=== PATIENT | female | born 1945 | race Two or more races ===

== ENCOUNTER 2024-12-13 06:05 | Inpatient (IN) | payer OTHER ==
[~2024-12-13] VITALS: Ht 162.6 cm; Wt 72.6 kg
[2024-12-13] MEDS ORDERED: ELIQUIS5 MG PO (06:24)
[2024-12-13] MEDS ORDERED: COZAAR50 MG PO (06:26)
[2024-12-13] MEDS ORDERED: LIPITOR20 MG PO (06:27)
[2024-12-13] MEDS ORDERED: TENORMIN25 MG PO (06:27)
[2024-12-13] MEDS ORDERED: MILLIPRED5 MG PO (06:27)
--- NOTE | 2024-12-13 06:32 | NUR ---
SE RECIBE FEMINA ALERTA Y ORIENTADA X3 QUIEN VERBALIZA ES REFERIDA POR DR SHARRI GUEVARA POR RESULTADOS DE LABORATORIO ALTERADOS. SE MIDEN S/V Y SE UBICA.
[2024-12-13] MEDS ORDERED: 0.9 % SODIUM CHLORIDE 500 ML IV ONE (08:15)
--- NOTE | 2024-12-13 09:11 | NUR ---
SE EDUCA A PACIENTE SOBRE TRATAMIENTO MEDICO EL CUAL REFIERE ENTENDER SE REALIZA ETHAN DE MUESTRAS JUSTEN ORDEN MEDICA Y SE ADMINISTRA MEDICAMENTOS JUSTEN ORDEN MEDICA.
[2024-12-13 09:21] LABS: BASO % 0.3 % (0.1-1.2); EOS # 0.02 (0.04-0.54); EOS % 0.6 % (0.7-7.0); LYMPH # 0.69 (1.18-3.74); LYMPH % 20.1 % (19.3-53.1); MEAN PLATELET VOLUME 10.00 fl (9.4-12.4); MONO # 0.46 (0.24-0.82); MONO % 13.4 % (4.7-12.5); NEUT # 2.23 (1.56-6.13); NEUT % 65.0 % (34.0-71.1); RED CELL DISTRIBUTION WIDTH 18.1 % (11.6-14.4)
[2024-12-13 09:42] LABS: INR 1.03
[2024-12-13 09:49] LABS: ALT/SGPT 28.0 U/L (12-78); AST/SGOT 25.0 U/L (15-37); BILIRUBIN TOTAL 0.8 mg/dL (0.3-1.2); BUN CREA RATIO 24.0 (7.0-25.0); CREATININE SERUM 0.88 mg/dL (0.55-1.02); GFR 61.98; GLOBULINA 4.4 G/DL (2.4-3.5); GLUCOSE FASTING 118.0 mg/dL (65-100); OSMOLALITY SERUM 285.0 MOSM/KG (275-295)
[2024-12-13 12:05] LABS: URINE APPEARANCE Clear; URINE BILIRRUBIN Negative (NEGATIVE); URINE BLOOD Negative; URINE COLOR Yellow; URINE GLUCOSE Negative (NEGATIVE); URINE KETONE Negative (NEGATIVE); URINE LEUKOCYTE Small; URINE NITRATE Negative; URINE PROTEIN Negative (NEGATIVE); URINE UROBILINOGEN 0.2 E.U./dl
[2024-12-13 12:09] LABS: URINE BACTERIA 682.6 uL (0.0-1933); URINE EPITHELIAL CELLS 12.9 uL (0.0-38.8); URINE RBC 3.3 uL (0.0-20.8); URINE WBC 33.6 uL (0.0-23.2)
[2024-12-13 12:23] LABS: URINE CAST 0.14 uL (0.0-1.40)
[2024-12-13] MEDS ORDERED: SODIUM CHLORIDE 0.45 % 1,000 ML IV SCH (13:30)
[2024-12-13] MEDS ORDERED: PANTOPRAZOLE SODIUM 40 MG/VIAL VIAL IV PUSH SCH (13:30)
[2024-12-13] MEDS ORDERED: LOSARTAN POTASSIUM 50 MG TABLET PO SCH (13:31)
[2024-12-13] MEDS ORDERED: ATENOLOL 50 MG TABLET PO SCH (13:31)
[2024-12-13] MEDS ORDERED: PREDNISONE 5 MG TABLET PO SCH (13:31)
[2024-12-13] MEDS ORDERED: ATENOLOL 25 MG TABLET PO NR (14:15)
[2024-12-13 14:36] VITALS: BP 154/79
[2024-12-13 18:04] LABS: COVID-19 AG NEGATIVE (NEGATIVE)
[2024-12-13 19:06] LABS: FE 50.0 ug/dl (50-170); LDH 186.0 U/L (84-246)
[2024-12-13 19:07] LABS: PHOSPHOKINASE CREATININE 40.0 U/L (26-192)
[2024-12-13 21:19] VITALS: BP 157/79; O2SAT 96
[2024-12-14] VITALS: BP 147/75; O2SAT 95
[2024-12-14 05:35] LABS: BASO % 0.0 % (0.1-1.2); EOS # 0.01 (0.04-0.54); EOS % 0.3 % (0.7-7.0); LYMPH # 0.58 (1.18-3.74); LYMPH % 16.8 % (19.3-53.1); MEAN PLATELET VOLUME 10.40 fl (9.4-12.4); MONO # 0.40 (0.24-0.82); MONO % 11.6 % (4.7-12.5); NEUT # 2.46 (1.56-6.13); NEUT % 71.0 % (34.0-71.1); RED CELL DISTRIBUTION WIDTH 17.8 % (11.6-14.4)
[2024-12-14 06:09] LABS: ERYTHROCYTE SEDIMENTATION RATE 61 mm/hr (0-30)
[2024-12-14 07:03] LABS: ALT/SGPT 24 U/L (12-78); AST/SGOT 20 U/L (15-37); BILIRUBIN TOTAL 0.84 mg/dL (0.3-1.2); BILIRUBIN,CONJUGATED 0.25 mg/dL (0.0-0.2); BUN CREA RATIO 21 (7.0-25.0); CHOL HDL RATIO 1.6 (0-5.0); CREATININE SERUM 0.72 mg/dL (0.55-1.02); FE 42.0 ug/dl (50-170); GFR 78.14; GLOBULINA 3.4 G/DL (2.4-3.5); GLUCOSE FASTING 101 mg/dL (65-100); HCG QUANTITATIVE 2 mUI/mL (1-3); HDL 111 mg/dl (40-60); LDL 52 mg/dl (0-130); OSMOLALITY SERUM 284 MOSM/KG (275-295); T4 FREE 0.97 NG/ML (0.76-1.46); TSH 0.737 uIU/mL (0.358-3.74); VLDL 12 (0-39)
[2024-12-14 07:16] LABS: COL ADP 251 SECONDS (56-102); COL EPI >265 SECONDS (82-175)
[2024-12-14] MEDS ORDERED: ATENOLOL 25 MG TABLET PO SCH (09:00)
[2024-12-14] MEDS ORDERED: ATORVASTATIN CALCIUM 20 MG TABLET PO SCH (09:00)
[2024-12-14 09:26] VITALS: BP 140/60; O2SAT 96
[2024-12-14] MEDS ORDERED: CYANOCOBALAMIN (VITAMIN B-12) 1,000 MCG/ML VIAL SUBCUTANEO NR (10:00)
[2024-12-14] MEDS ORDERED: BISACODYL 10 MG/SUPP.RECT SUPP.RECT RECTAL NR (10:00)
[2024-12-14] MEDS ORDERED: FOLIC ACID 1 MG TABLET PO NR (10:00)
[2024-12-14 11:17] LABS: CORTISOL 4.64 ug/dl; FOLIC ACID 11.73 ng/ml (4.78-20)
[2024-12-14 17:15] VITALS: BP 153/73; O2SAT 97
[2024-12-15 02:21] VITALS: BP 127/86; O2SAT 91
[2024-12-15] MEDS ORDERED: FOLIC ACID 1 MG TABLET PO SCH (09:00)
[2024-12-15] MEDS ORDERED: CYANOCOBALAMIN (VITAMIN B-12) 1,000 MCG/ML VIAL SUBCUTANEO SCH (09:00)
[2024-12-15 09:11] LABS: ACTH 6.4 pg/mL (7.2-63.3); DHEA-SULFATE 11.2 ug/dL (13.9-142.8)
[2024-12-15 09:18] VITALS: BP 140/53; O2SAT 96
[2024-12-15 11:04] LABS: ob POSITIVE (NEGATIVE)
[2024-12-15 17:32] VITALS: BP 131/74; O2SAT 97
[2024-12-16 02:34] VITALS: BP 157/76; O2SAT 95
[2024-12-16 07:00] VITALS: BP 145/77; O2SAT 94
[2024-12-16] MEDS ORDERED: ATENOLOL25 MG PO (09:54)
[2024-12-16] MEDS ORDERED: LIPITOR20 MG PO (09:54)
[2024-12-16] MEDS ORDERED: COZAAR50 MG PO (09:54)
[2024-12-16] MEDS ORDERED: FOLIC ACID1 MG PO (09:55)
[2024-12-17 15:08] LABS: TISSUE TRANSGLUTAMINASE IGA < 2 U/mL (0-3)
== END 2024-12-16 10:12 | disposition home or self-care (01) | DRG 810 ==
LOC: ER 06:05 → MEDI 13:48 → SEC-K 13:48 → MEDI 17:52
PROVIDERS: General Practice; ADMIT Internal Medicine; ATTEND Internal Medicine
PROC: BW21ZZZ Computerized Tomography (CT Scan) of Abdomen and Pelvis (ICD-10-PCS; principal; 2024-12-13)
DX: D61.818 Other pancytopenia (principal); D51.8 Other vitamin B12 deficiency anemias; D72.819 Decreased white blood cell count, unspecified; D69.6 Thrombocytopenia, unspecified; I10 Essential (primary) hypertension

== ENCOUNTER 2025-02-25 11:20 | Emergency (ER) | payer OTHER ==
[~2025-02-25] VITALS: Ht 170.2 cm; Wt 63.5 kg
[~2025-02-25 11:20] MED LIST: ALPRAZOLAM0.5 MG PO; ATENOLOL25 MG PO; BUDESONIDE0.5 MG/2 M IH; BUMETANIDE1 MG PO; COZAAR50 MG PO; ELIQUIS5 MG PO; FOLIC ACID1 MG PO; GERI-TUSSI100 MG/5 M PO; HUMULIN 70100 UNIT/2 SUBCUTANEO; INSULIN LI100 UNIT/1 SUBCUTANEO; IPRATROPIU0.2 MG/1 M IH; LIPITOR20 MG PO; MILLIPRED5 MG PO; NORVASC5 MG; Neurin-Sl Tablet Sl SL; POLY119PG PO; PREDNISONE20 MG PO; PROTEINEX-18 LI30 ML PO; RESTORIL15 MG PO; TENORMIN25 MG PO; TOPROL XL50 M1 PO
[2025-02-25] MEDS ORDERED: 0.9 % SODIUM CHLORIDE 1,000 ML IV SCH (14:15)
[2025-02-25] MEDS ORDERED: GUAIFEN/DEXTROMETHORPHAN/PE 10 ML BLIST.PACK PO ONE ×2 (14:15→14:21)
[2025-02-25 15:00] LABS: BASO % 0.1 % (0.1-1.2); EOS # 0.00 (0.04-0.54); EOS % 0.0 % (0.7-7.0); LYMPH # 0.32 (1.18-3.74); LYMPH % 3.6 % (19.3-53.1); MEAN PLATELET VOLUME 9.40 fl (9.4-12.4); MONO # 0.18 (0.24-0.82); MONO % 2.1 % (4.7-12.5); NEUT # 8.19 (1.56-6.13); NEUT % 93.3 % (34.0-71.1); RED CELL DISTRIBUTION WIDTH 18.3 % (11.6-14.4)
[2025-02-25 15:19] LABS: ALT/SGPT 16.0 U/L (12-78); AST/SGOT 27.0 U/L (15-37); BILIRUBIN TOTAL 0.5 mg/dL (0.3-1.2); BUN CREA RATIO 17.0 (7.0-25.0); CREATININE SERUM 0.9 mg/dL (0.55-1.02); GFR 60.4; GLOBULINA 4.6 G/DL (2.4-3.5); GLUCOSE FASTING 157.0 mg/dL (65-100); OSMOLALITY SERUM 280.0 MOSM/KG (275-295)
[2025-02-25 15:52] LABS: COVID-19 AG NEGATIVE (NEGATIVE)
== END 2025-02-25 21:32 | disposition home or self-care (01) ==
LOC: ER 11:20
PROVIDERS: Emergency Medicine
DX: J40 Bronchitis, not specified as acute or chronic (principal); Z74.01 Bed confinement status; T78.40XA Allergy, unspecified, initial encounter; R06.02 Shortness of breath; R21 Rash and other nonspecific skin eruption; Z20.822 Contact with and (suspected) exposure to COVID-19; I10 Essential (primary) hypertension; E11.9 Type 2 diabetes mellitus without complications; Z79.4 Long term (current) use of insulin; Z88.0 Allergy status to penicillin; Z88.5 Allergy status to narcotic agent; Z88.8 Allergy status to other drugs, medicaments and biological substances
CPT/HCPCS: 36415; 71045; 71250; 96365; 96366; 99284; J7030